=== PATIENT | female | born 1945 | race Caucasian/White ===

== ENCOUNTER → 2017-06-02 | Outpatient (CLI) | payer BC ==
[2017-06-02 11:01] LABS: BLOOD UREA NITROGEN 12 mg/dl (7-18); CREATININE 0.79 mg/dl (0.60-1.20)
--- NOTE | 2017-06-02 11:05 | DIAGNOSTIC IMAGING REPORT ---
CT SCAN OF THE ABDOMEN AND PELVIS WITHOUT CONTRAST CLINICAL HISTORY: DIVERTICULITIS OF COLON COMPARISON STUDY: No previous studies for comparison. TECHNIQUE: CT scan of the abdomen and pelvis was performed from the lung bases to the proximal femurs. Images are reviewed in the axial, sagittal, and coronal planes. IV contrast was not administered for this examination. A dose lowering technique was utilized adhering to the principles of ALARA. CT DOSE: 316.74 mGy.cm FINDINGS: Lower chest: There are mild basilar atelectatic changes Liver: There is borderline hepatomegaly. No masses are visualized on this noncontrast study Gallbladder: Unremarkable. Spleen: Normal in size and attenuation. Pancreas: Unremarkable. Adrenal glands: There is a 15 mm right adrenal nodule, likely representing an adenoma Kidneys: No renal, ureteral, or bladder calculi are visualized. Bowel: There are no transition zone to indicate bowel obstruction. There is scattered colonic diverticula. There is mild superior rectal and sigmoid colon wall thickening. There is infiltration of the pericolonic fat. The findings likely are secondary to acute diverticulitis. Clinical follow-up is advocated. Peritoneum: There is no intraperitoneal free air or abdominal ascites. Vasculature: The abdominal aorta is normal in course and caliber. Adenopathy: None. Pelvic viscera: The bladder, and pelvic viscera are unremarkable. Skeletal structures: No destructive osseous lesions are seen. IMPRESSION: Mild sigmoid and superior rectal wall thickening with infiltration of the pericolonic fat. The findings are likely secondary to acute diverticulitis. There are no fluid collections to indicate a drainable abscess. Electronically signed by: Vitaly Vergara M.D. 06/02/2017 11:04 AM Dictated Date/Time: 06/02/2017 10:57 AM
== END | disposition home or self-care (01) ==
LOC: C.CTS 10:19
PROVIDERS: ATTEND Family Medicine
DX: K57.32 Diverticulitis of large intestine without perforation or abscess without bleeding (principal)